=== PATIENT | female | born 1980 | race Hispanic/Latino ===

== ENCOUNTER 2018-01-10 15:34 | Emergency (ER) | payer BC ==
--- NOTE | 2018-01-10 17:36 | EDPHYS ---
Physician Documentation [facility] Name: Mechelle Longo Age: 37 yrs Sex: Female : 1980 Arrival Date: 01/10/2018 Time: 15:37 Bed 11 Private MD: ED Physician Oscar Tristan HPI: 01/10 17:31 This 37 yrs old Female presents to ER via Ambulatory with complaints of Back rn Pain. 17:31 The patient presents with pain that is chronic. The symptoms are located in the low rn back. Onset: The symptoms/episode began/occurred at an unknown time. " for awhile". The pain does not radiate. Associated signs and symptoms: Pertinent positives: none Pertinent negatives: abdominal pain, chest pain, constipation, dysuria, fever, hematuria, incontinence, nausea, numbness, tingling, urinary retention, vomiting, weakness. Severity of symptoms: At their worst the symptoms were moderate, in the emergency department the symptoms have improved. The patient has experienced similar episodes in the past. REports chronic back pain, for years, began after falling and hitting tailbone, since then, intermittent low back pain, worse in mornings and with twisting/moving, no fever, no weakness/bowel/bladder incontinence. No new trauma. No radiation.. 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 - Social history:: Smoking status: Patient/guardian denies using tobacco. - Ebola Screening: : No symptoms or risks identified at this time. - Family history:: not pertinent. - Hospitalizations: : No recent hospitalization is reported. ROS: 17:31 Constitutional: Negative for fever, chills, and weight loss, Eyes: Negative for injury, rn pain, redness, and discharge, Neck: Negative for injury, pain, and swelling, Cardiovascular: Negative for chest pain, palpitations, and edema, Respiratory: Negative for shortness of breath, cough, wheezing, and pleuritic chest pain, Abdomen/GI: Negative for abdominal pain, nausea, vomiting, diarrhea, and constipation, Back: + pain, no injury MS/Extremity: Negative for injury and deformity, Skin: Negative for injury, rash, and discoloration, Neuro: Negative for headache, weakness, numbness, tingling, and seizure. Exam: 17:31 Constitutional: This is a well developed, well nourished patient who is awake, alert, rn and in no acute distress. Head/Face: Normocephalic, atraumatic. Neck: Trachea midline, no thyromegaly or masses palpated, and no cervical lymphadenopathy. Supple, full range of motion without nuchal rigidity, or vertebral point tenderness. No Meningismus. Back: No spinal tenderness. No costovertebral tenderness. + mild perilumbar tenderness Skin: Warm, dry with normal turgor. Normal color with no rashes, no lesions, and no evidence of cellulitis. MS/ Extremity: Pulses equal, no cyanosis. Neurovascular intact. Full, normal range of motion. Equal circumference. Neuro: Awake and alert, GCS 15, oriented to person, place, time, and situation. Cranial nerves II-XII grossly intact. Motor strength 5/5 in all extremities. Sensory grossly intact. Cerebellar exam normal. Normal gait. Vital Signs: 15:41 BP 108 / 57; Pulse 51; Resp 16; Temp 98; Pulse Ox 100% ; Weight 61.23 kg; Height 5 ft. sv 2 in. (157.48 cm); Pain 8/10; 15:41 Body Mass Index 24.69 (61.23 kg, 157.48 cm) sv MDM: 17:06 Patient medically screened. cp 17:31 Differential diagnosis: arthritis, chronic back pain, Fatigue Osteoarthritis sprain. rn Data reviewed: vital signs, nurses notes, lab test result(s), urinalysis, and as a result, I will discharge patient. 17:35 Counseling: I had a detailed discussion with the patient and/or guardian regarding: the rn historical points, exam findings, and any diagnostic results supporting the discharge/admit diagnosis, lab results, the need for outpatient follow up, to return to the emergency department if symptoms worsen or persist or if there are any questions or concerns that arise at home. Special discussion: I discussed with the patient/guardian in detail that at this point there is no indication for admission to the hospital. It is understood, however, that if the symptoms persist or worsen the patient needs to return immediately for re-evaluation. 01/10 17:39 Order name: Urine Dipstick--Ancillary (enter results) bd 01/10 17:39 Order name: Urine --Ancillary (enter results) bd 01/10 17:06 Order name: Urine Dipstick-Ancillary (obtain specimen); Complete Time: 17:24 cp 01/10 17:06 Order name: Urine Test (obtain specimen); Complete Time: 17:24 cp Administered Medications: No medications were administered Disposition: 01/10/18 17:36 Discharged to Home. Impression: Low back pain, Muscle spasm of back. - Condition is Stable. - Discharge Instructions: Back Pain, Adult, Chronic Back Pain, Muscle Cramps and Spasms, Musculoskeletal Pain, Urinary Tract Infection, Adult. - Prescriptions for Cyclobenzaprine 10 mg Oral Tablet - take 1 tablet by ORAL route every 8 hours As needed; 20 tablet. Medrol (Sukh) 4 mg Oral Tablets, Dose Pack - take 1 tablet by ORAL route as directed - follow package instructions; 1 packet. Macrobid 100 mg Oral Capsule - take 1 capsule by ORAL route every 12 hours for 7 days; 14 capsule. - Medication Reconciliation Form, Thank You Letter, Antibiotic Education, Prescription Opioid Use form. - Follow up: Private Physician; When: As needed; Reason: Recheck today's complaints, Re-evaluation by your physician. - Problem is chronic. - Symptoms have improved. Signatures: Dispatcher [employer] EDSierra Waters RN RN sv Chretien, Felicia, RN RN fc Nieto, Roman, MD MD rn Page, Corey, PA PA cp Corrections: (The following items were deleted from the chart) 17:53 17:36 01/10/2018 17:36 Discharged to Home. Impression: Low back pain; Muscle spasm of fc back. Condition is Stable. Discharge Instructions: Back Pain, Adult, Chronic Back Pain, Muscle Cramps and Spasms, Musculoskeletal Pain, Urinary Tract Infection, Adult. Prescriptions for Cyclobenzaprine 10 mg Oral Tablet - take 1 tablet by ORAL route every 8 hours As needed; 20 tablet, Medrol (Sukh) 4 mg Oral Tablets, Dose Pack - take 1 tablet by ORAL route as directed - follow package instructions; 1 packet, Macrobid 100 mg Oral Capsule - take 1 capsule by ORAL route every 12 hours for 7 days; 14 capsule. and Forms are Medication Reconciliation Form, Thank You Letter, Antibiotic Education, Prescription Opioid Use. Follow up: Private Physician; When: As needed; Reason: Recheck today's complaints, Re-evaluation by your physician. Problem is chronic. Symptoms have improved. rn
--- NOTE | 2018-01-10 17:36 | ER ---
Nurse's Notes [facility] Name: Mechelle Longo Age: 37 yrs Sex: Female : 1980 Arrival Date: 01/10/2018 Time: 15:37 Bed 11 Private MD: Diagnosis: Low back pain;Muscle spasm of back Presentation: 01/10 15:40 Presenting complaint: Patient states: low back pain that started this morning. Denies sv n/v. Transition of care: patient was not received from another setting of care. Onset of symptoms was January 10, 2018. Care prior to arrival: None. 15:40 Method Of Arrival: Ambulatory sv 15:40 Acuity: BRANDON 4 sv 17:43 Risk Assessment: Do you want to hurt yourself or someone else? Patient reports no fc desire to harm self or others. Initial Sepsis Screen: Does the patient meet any 2 criteria? No. Patient's initial sepsis screen is negative. Does the patient have a suspected source of infection? No. Patient's initial sepsis screen is negative. Triage Assessment: 17:09 General: Appears uncomfortable, slender, Behavior is calm, cooperative, appropriate for fc age. Pain: Complains of pain in low back area Quality of pain is described as aching, throbbing, Pain began this am Is continuous, Aggravated by increased activity, repositioning. EENT: No deficits noted. Neuro: Level of Consciousness is awake, alert, obeys commands, Oriented to person, place, time, situation. Cardiovascular: No deficits noted. Respiratory: No deficits noted. GI: No deficits noted. : No deficits noted. Derm: Skin is pink, warm \T\ dry. Musculoskeletal: Circulation, motion, and sensation intact. Capillary refill < 3 seconds, Range of motion: intact in all extremities, Reports pain in low back area. 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 - Social history:: Smoking status: Patient/guardian denies using tobacco. - Ebola Screening: : No symptoms or risks identified at this time. - Family history:: not pertinent. - Hospitalizations: : No recent hospitalization is reported. Screenin:08 Abuse screen: Denies threats or abuse. Denies injuries from another. Nutritional fc screening: No deficits noted. Tuberculosis screening: No symptoms or risk factors identified. Fall Risk None identified. Assessment: 17:10 Reassessment: see triage assessment. Pain: Complains of pain in low back area. Neuro: fc Level of Consciousness is awake, alert, obeys commands, Oriented to person, place, time, situation. 17:27 Reassessment: Dr Tristan in to see and examine pt. fc 17:41 Reassessment: No changes from previously documented assessment. Patient and/or family fc updated on plan of care and expected duration. Pain level reassessed. Patient is alert, oriented x 3, equal unlabored respirations, skin warm/dry/pink. Pt pending discharge. Vital Signs: 15:41 BP 108 / 57; Pulse 51; Resp 16; Temp 98; Pulse Ox 100% ; Weight 61.23 kg; Height 5 ft. sv 2 in. (157.48 cm); Pain 8/10; 15:41 Body Mass Index 24.69 (61.23 kg, 157.48 cm) sv ED Course: 15:37 Patient arrived in ED. mr 15:41 Triage completed. sv 15:42 Arm band placed on right wrist. sv 17:06 Selwyn Frye PA is PHCP. cp 17:06 Oscar Tristan MD is Attending Physician. cp 17:08 Patient has correct armband on for positive identification. Bed in low position. Call fc light in reach. 17:08 No provider procedures requiring assistance completed. fc 17:19 Rosas August PA is PHCP. jr8 17:19 Oscar Tristan MD is Attending Physician. jr8 17:43 Patient did not have IV access during this emergency room visit. fc Administered Medications: No medications were administered Outcome: 17:36 Discharge ordered by . rn 17:41 Discharged to home ambulatory, with family. fc 17:41 Condition: good 17:41 Discharge instructions given to patient, family, Instructed on discharge instructions, follow up and referral plans. no drinking with medication, no driving heavy equipment, medication usage, increase fluid intake Demonstrated understanding of instructions, follow-up care, medications, increase fluid intake Prescriptions given X 3. 17:53 Patient left the ED. fc Signatures: Sierra Pollard RN RN Adelia Jolly mr Jocelyne Johns RN RN fc Nieto, Roman, MD MD rn Roszak, Josh, PA PA jr8 Selwyn Frye PA PA cp
[2018-01-10 17:53] LABS: Urine Blood TRACE (NEG); Urine Glucose NEGATIVE (NEG); Urine Protein NEGATIVE (NEG); Urine Specific Gravity 1.025 (1.005-1.030); Urine pH 6.5 (5.0-7.0)
[2018-01-10 17:58] VITALS: BP 108/57; TEMP 98; O2SAT 100
== END 2018-01-10 17:53 | disposition home or self-care (01) ==
LOC: ER 15:34
DX: M54.5 Low back pain (principal); M62.830 Muscle spasm of back
CPT/HCPCS: 81003; 81025; 99282

== ENCOUNTER 2019-05-01 12:14 | Emergency (ER) | payer BC ==
--- NOTE | 2019-05-01 13:09 | RAD REPORT ---
EXAM DESCRIPTION: CT - CTHCSPWOC - 05/01/2019 12:56 pm CLINICAL HISTORY: Fall, head and neck injury, headache COMPARISON: None. TECHNIQUE: Axial 5 mm thick images of the head were obtained. Axial 2 mm thick images of the cervic al spine were obtained with sagittal and coronal reconstruction images generated and reviewed. All CT scans are performed using dose optimization technique as appropriate and may include automated exposure control or mA/KV adjustment according to patient size. FINDINGS: No intracranial hemorrhage, mass, edema or acute intracranial finding. No suspicion for acute infarct ion. No extra-axial fluid collections. Mastoid air cells and paranasal sinuses are clear. No globe or orbit abnormality seen. Cervical body height and alignment are normal. No disk space narrowing. No fracture or acute bony abn ormality. No paraspinal mass or hematoma. IMPRESSION: Negative CT head examination for acute or significant finding. Negative CT cervical spine examination for acute or significant finding.
--- NOTE | 2019-05-01 13:38 | RAD REPORT ---
EXAM DESCRIPTION: RAD - Sacrum And Coccyx - 05/01/2019 1:18 pm CLINICAL HISTORY: PAIN, recent fall COMPARISON: None. TECHNIQUE: Lateral, 15 degree cephalad and 10 degree caudal images obtained. FINDINGS: No sacrum or coccyx fracture seen. No displacement of the sacral coccygeal segments. No ly tic, sclerotic or expansile change. SI joints and pubic symphysis are normal range. IMPRESSION: No fracture or acute finding of the sacrum or coccyx.
--- NOTE | 2019-05-01 13:49 | ER ---
Nurse's Notes [facility] Name: Mechelle Longo Age: 38 yrs Sex: Female : 1980 Arrival Date: 05/01/2019 Time: 12:16 Bed 9 Private MD: Diagnosis: Fall on same level from slipping, tripping and stumbling;Low back pain;Headache Presentation: 05/01 12:26 Presenting complaint: Low back pain, right hip pain, and headache after mechanical fall hb from standing yesterday. Care prior to arrival: None. 12:26 Acuity: BRANDON 4 hb 12:26 Method Of Arrival: Ambulatory hb 12:27 Transition of care: patient was not received from another setting of care. Onset of hb symptoms was April 30, 2019. Risk Assessment: Do you want to hurt yourself or someone else? Patient reports no desire to harm self or others. Initial Sepsis Screen: Does the patient meet any 2 criteria? No. Patient's initial sepsis screen is negative. Does the patient have a suspected source of infection? No. Patient's initial sepsis screen is negative. Triage Assessment: 12:27 General: Appears in no apparent distress. Behavior is calm, cooperative. Pain: Pain hb currently is 8 out of 10 on a pain scale. EENT: No signs and/or symptoms were reported regarding the EENT system. Neuro: Level of Consciousness is awake, alert, obeys commands, Oriented to person, place, time, situation. Cardiovascular: Capillary refill < 3 seconds Patient's skin is warm and dry. Respiratory: Airway is patent Respiratory effort is even, unlabored, Respiratory pattern is regular, symmetrical. GI: No signs and/or symptoms were reported involving the gastrointestinal system. : No signs and/or symptoms were reported regarding the genitourinary system. Derm: Skin is pink, warm \T\ dry. Musculoskeletal: Reports back and right hip pain. Historical: - Allergies: 12:27 No Known Allergies; hb - Home Meds: 12:27 None [Active]; hb - PMHx: 12:27 None; hb - PSHx: 12:27 None; hb - Immunization history:: Adult Immunizations up to date. - Social history:: Smoking status: Patient/guardian denies using tobacco. - Ebola Screening: : No symptoms or risks identified at this time. Screenin:29 Abuse screen: Denies threats or abuse. Denies injuries from another. Nutritional hb screening: No deficits noted. Tuberculosis screening: No symptoms or risk factors identified. Fall Risk None identified. Assessment: 12:29 General: see triage assessment. hb 13:25 Reassessment: Patient appears in no apparent distress at this time. Patient and/or hb family updated on plan of care and expected duration. Pain level reassessed. Patient is alert, oriented x 3, equal unlabored respirations, skin warm/dry/pink. Vital Signs: 12:27 BP 110 / 64; Pulse 63; Resp 16; Temp 97.2; Pulse Ox 100% on R/A; Weight 67.13 kg; hb Height 5 ft. 2 in. (157.48 cm); Pain 8/10; 12:27 Body Mass Index 27.07 (67.13 kg, 157.48 cm) hb ED Course: 12:16 Patient arrived in ED. mr 12:22 Tame[facility]C [facility] kb 12:22 Oscar Tristan MD is Attending Physician. kb 12:27 Triage completed. hb 12:27 Arm band placed on. hb 12:56 CT Head C Spine In Process Unspecified. EDMS 12:59 Mindy Horta, RN is Primary Nurse. hb 13:01 Patient has correct armband on for positive identification. Call light in reach. hb 13:13 Sacrum And Coccyx XRAY In Process Unspecified. EDMS Administered Medications: No medications were administered Outcome: 13:48 Discharge ordered by . kb 14:20 Patient left the ED. iw Signatures: Dispatcher [employer] EDMS Tameka Kumar FNP-C FNP-Ckb RikMeme Angella Winn, RN RN Mindy Horta, RN RN hb
--- NOTE | 2019-05-01 13:50 | EDPHYS ---
Physician Documentation [facility] Name: Mechelle Longo Age: 38 yrs Sex: Female : 1980 Arrival Date: 05/01/2019 Time: 12:16 Bed 9 Private MD: ED Physician Oscar Tristan HPI: 05/01 13:45 This 38 yrs old Female presents to ER via Ambulatory with complaints of Fall kb Injury. 13:45 Details of fall: The patient fell from an upright position, while walking. Onset: The kb symptoms/episode began/occurred yesterday. Associated injuries: The patient sustained injury to the head, pain, coccyx, painful injury. Severity of symptoms: At their worst the symptoms were moderate, in the emergency department the symptoms are unchanged. The patient has not experienced similar symptoms in the past. The patient has not recently seen a physician. Pt slipped and fell yesterday. c/o pain to head and sacrum area. Denies LOC. Historical: - Allergies: 12:27 No Known Allergies; hb - Home Meds: 12:27 None [Active]; hb - PMHx: 12:27 None; hb - PSHx: 12:27 None; hb - Immunization history:: Adult Immunizations up to date. - Social history:: Smoking status: Patient/guardian denies using tobacco. - Ebola Screening: : No symptoms or risks identified at this time. ROS: 13:45 Constitutional: Negative for fever, chills, and weight loss, Neck: Negative for injury, kb pain, and swelling, Cardiovascular: Negative for chest pain, palpitations, and edema, Respiratory: Negative for shortness of breath, cough, wheezing, and pleuritic chest pain, Abdomen/GI: Negative for abdominal pain, nausea, vomiting, diarrhea, and constipation, MS/Extremity: Negative for injury and deformity, Skin: Negative for injury, rash, and discoloration. 13:45 Back: Positive for pain at rest, pain with movement, of the sacrum. 13:45 Neuro: Positive for headache. Exam: 13:45 Constitutional: This is a well developed, well nourished patient who is awake, alert, kb and in no acute distress. Head/Face: Normocephalic, atraumatic. Eyes: Pupils equal round and reactive to light, extra-ocular motions intact. Lids and lashes normal. Conjunctiva and sclera are non-icteric and not injected. Cornea within normal limits. Periorbital areas with no swelling, redness, or edema. ENT: Nares patent. No nasal discharge, no septal abnormalities noted. Tympanic membranes are normal and external auditory canals are clear. Oropharynx with no redness, swelling, or masses, exudates, or evidence of obstruction, uvula midline. Mucous membranes moist. Neck: Trachea midline, no thyromegaly or masses palpated, and no cervical lymphadenopathy. Supple, full range of motion without nuchal rigidity, or vertebral point tenderness. No Meningismus. Chest/axilla: Normal chest wall appearance and motion. Nontender with no deformity. No lesions are appreciated. Cardiovascular: Regular rate and rhythm with a normal S1 and S2. No gallops, murmurs, or rubs. Normal PMI, no JVD. No pulse deficits. Respiratory: Lungs have equal breath sounds bilaterally, clear to auscultation and percussion. No rales, rhonchi or wheezes noted. No increased work of breathing, no retractions or nasal flaring. Abdomen/GI: Soft, non-tender, with normal bowel sounds. No distension or tympany. No guarding or rebound. No evidence of tenderness throughout. Skin: Warm, dry with normal turgor. Normal color with no rashes, no lesions, and no evidence of cellulitis. MS/ Extremity: Pulses equal, no cyanosis. Neurovascular intact. Full, normal range of motion. Neuro: Awake and alert, GCS 15, oriented to person, place, time, and situation. Cranial nerves II-XII grossly intact. Motor strength 5/5 in all extremities. Sensory grossly intact. Cerebellar exam normal. Normal gait. Vital Signs: 12:27 BP 110 / 64; Pulse 63; Resp 16; Temp 97.2; Pulse Ox 100% on R/A; Weight 67.13 kg; hb Height 5 ft. 2 in. (157.48 cm); Pain 8/10; 12:27 Body Mass Index 27.07 (67.13 kg, 157.48 cm) hb MDM: 12:31 Patient medically screened. kb 13:44 Data reviewed: vital signs, nurses notes. Data interpreted: Pulse oximetry: on room air kb is 100 %. Interpretation: normal. Counseling: I had a detailed discussion with the patient and/or guardian regarding: the historical points, exam findings, and any diagnostic results supporting the discharge/admit diagnosis, radiology results, the need for outpatient follow up, a family practitioner, to return to the emergency department if symptoms worsen or persist or if there are any questions or concerns that arise at home. 05/01 12:37 Order name: Sacrum And Coccyx XRAY; Complete Time: 13:44 kb 05/01 12:37 Order name: CT Head C Spine; Complete Time: 13:14 kb Administered Medications: No medications were administered Disposition: 15:45 Co-signature as Attending Physician, Oscar Tristan MD. rn Disposition: 05/01/19 13:48 Discharged to Home. Impression: Fall on same level from slipping, tripping and stumbling, Low back pain, Headache. - Condition is Stable. - Discharge Instructions: Musculoskeletal Pain, Back Pain, Adult, [id number]. - Medication Reconciliation Form, Thank You Letter, Antibiotic Education, Prescription Opioid Use form. - Follow up: Emergency Department; When: As needed; Reason: Worsening of condition. Follow up: Private Physician; When: 2 - 3 days; Reason: Recheck today's complaints, Continuance of care, Re-evaluation by your physician. Signatures: Dispatcher [employer] Tameka Morales, URBAN GARDENING SPECIALIST-C URBAN GARDENING SPECIALIST-Allanb Angella Winn RN RN iw Nieto, Roman, MD MD rn Baxter, Heather, RN RN Corrections: (The following items were deleted from the chart) 14:20 13:48 05/01/2019 13:48 Discharged to Home. Impression: Fall on same level from iw slipping, tripping and stumbling; Low back pain; Headache. Condition is Stable. Forms are Medication Reconciliation Form, Thank You Letter, Antibiotic Education, Prescription Opioid Use. Follow up: Emergency Department; When: As needed; Reason: Worsening of condition. Follow up: Private Physician; When: 2 - 3 days; Reason: Recheck today's complaints, Continuance of care, Re-evaluation by your physician. kb
[2019-05-01 14:30] VITALS: BP 110/64; TEMP 97.2; O2SAT 100
== END 2019-05-01 14:20 | disposition home or self-care (01) ==
LOC: ER 12:14
DX: M54.5 Low back pain (principal); R51 Headache; W01.0XXA Fall on same level from slipping, tripping and stumbling without subsequent striking against object, initial encounter; Y93.9 Activity, unspecified; Y92.9 Unspecified place or not applicable
CPT/HCPCS: 70450; 72125; 72220; 99282

== ENCOUNTER → 2020-12-16 | Day surgery (SDC) | payer BC ==
--- NOTE | 2020-12-16 11:21 | RAD REPORT ---
EXAM DESCRIPTION: US - Breast Aspiration Inital - 12/16/2020 10:33 am CLINICAL HISTORY: ICD R 92.8 COMPARISON: December 02, 2020 ultrasound TECHNIQUE: Risks, benefits alternatives to the procedure were explained to the patient and informed consent obtained. Under sonographic guidance the mass within the upper-outer quadrant of the right breast was localized . Skin, subcutaneous and deeper tissues anesthetized with lidocaine. An 18 gauge needle was placed into the cystic appearing mass. Approximately 3 cc of brownish fluid wa s aspirated and given to pathology. Ultrasound demonstrates that the mass completely collapsed after the aspiration. Patient experienced no immediate complication IMPRESSION: Aspiration of a cyst within the right breast
== END ==
LOC: DS 10:00
PROVIDERS: ATTEND Obstetrics & Gynecology
DX: N63.10 Unspecified lump in the right breast, unspecified quadrant (principal); R92.8 Other abnormal and inconclusive findings on diagnostic imaging of breast
CPT/HCPCS: 19000; 88162; 88305